=== PATIENT | female | born 1985 ===

== ENCOUNTER 2016-12-11 21:25 | Emergency (ER) | payer SELFPAY ==
[2016-12-11 21:25] VITALS: BMI 31.1
[2016-12-11 22:00] VITALS: BP 107/68; PULSE 80; RESP 18; TEMP 99.3; O2SAT 99
--- NOTE | 2016-12-11 22:51 | ED PDOC ---
HPI: General Adult Time Seen by Provider: 12/11/16 22:25 Chief Complaint (Nursing): Breast Problem Chief Complaint (Provider): Breast pain, headache, chest pain History Per: Patient History/Exam Limitations: no limitations Onset/Duration Of Symptoms: Persistent Additional History Per: Patient Additional Complaint(s): The patient is a 31yo female, past medical history of stroke, treated at [facility] 1 year ago, presents to the ED for evaluation of right breast pain, headache and chest pain. Patient reports she has chronic right breast pain, which she manages with ibuprofen - reports she is here with her daughter who is also a patient in the facility so she has not been able to take her ibuprofen. She also verbalized a chest pain and headache, and reports she feels anxious and stressed as a single mom of 5 children. She denies any nausea, vomiting, diaphoresis, cough, shortness of breath. She offers no additional medical complaints. Past Medical History Reviewed: Historical Data, Nursing Documentation, Vital Signs Vital Signs: Last Vital Signs Temp 99.3 F 12/11/16 21:58 Pulse 80 12/11/16 21:58 Resp 18 12/11/16 21:58 BP 107/68 12/11/16 21:58 Pulse Ox 99 12/11/16 22:54 - Medical History PMH: Asthma, TIA Denies: Chronic Kidney Disease Other PMH: right breast pain - Surgical History Surgical History: No Surg Hx - Family History Family History: States: No Known Family Hx, Unknown Family Hx - Living Arrangements Living Arrangements: With Family - Social History Current smoker - smoking cessation education provided: No Ex-Smoker (has not smoked in the last 12 months): No Alcohol: None Drugs: Denies - Immunization History Hx Tetanus Toxoid Vaccination: No Hx Influenza Vaccination: Yes Hx Pneumococcal Vaccination: No - Home Medications Home Medications: Ambulatory Orders Medication Instructions Recorded Aspirin [Ecotrin] 81 mg PO DAILY #0 tabec 12/31/15 Ferrous Sulfate [Feosol] 325 mg PO BID #60 tab 12/31/15 Ibuprofen [Motrin Tab] 600 mg PO Q6 PRN #12 tab 12/12/16 - Allergies Allergies/Adverse Reactions: Allergies Allergy/AdvReac Type Severity Reaction Status Date / Time No Known Allergies Allergy Verified 12/29/15 19:53 Review of Systems ROS Statement: Except As Marked, All Systems Reviewed And Found Negative Constitutional: Negative for: Sweats Cardiovascular: Positive for: Chest Pain, Other (right breast pain) Respiratory: Negative for: Cough, Shortness of Breath Gastrointestinal: Negative for: Nausea, Vomiting Neurological: Positive for: Headache Physical Exam - Reviewed Nursing Documentation Reviewed: Yes Vital Signs Reviewed: Yes - Physical Exam Appears: Positive for: Non-toxic, No Acute Distress Head Exam: Positive for: ATRAUMATIC, NORMAL INSPECTION, NORMOCEPHALIC Skin: Positive for: Warm, Dry Eye Exam: Positive for: Normal appearance Neck: Positive for: Supple Cardiovascular/Chest: Positive for: Regular Rate, Rhythm, Other (breast exam performed with 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 Negative for: Wheezing Neurologic/Psych: Positive for: Alert, Oriented. Negative for: Motor/Sensory Deficits - Laboratory Results Result Diagrams: 12/11/16 22:50 12/11/16 22:50 - ECG O2 Sat by Pulse Oximetry: 99 (RA) Pulse Ox Interpretation: Normal Medical Decision Making Medical Decision Making: Time: 2242 Impression: 31yo female with right breastalgia, headache, chest pain, in setting of familial stress Plan: -- Labs -- EKG -- Ibuprofen 600 mg PO Reassess 44 Labs reviewed: no clinically significant abnormalities. Patient notes symptoms have improved and is stable for discharge. Diagnosis: atypical chest pain, familial stress, nostalgia Scribe Attestation: Documented by Theresa Ordonez acting as a scribe for Gonzalez Merrill MD. Provider Attestation: All medical record entries made by the Scribe were at my direction and personally dictated by me. I have reviewed the chart and agree that the record accurately reflects my personal performance of the history, physical exam, medical decision making, and the department course for this patient. I have also personally directed, reviewed, and agree with the discharge instructions and disposition. Disposition - Clinical Impression Clinical Impression: Atypical chest pain, Stress at home, Mastalgia - Disposition Disposition: Routine/Home Disposition Time: 00:45 Condition: STABLE Prescriptions: Ibuprofen [Motrin Tab] 600 mg PO Q6 PRN #12 tab PRN Reason: breast pain/headache Instructions: Stress (ED), Noncardiac Chest Pain (ED) Forms: [facility] (Slovenian) Print Language: STATELESS
[2016-12-11 23:53] LABS: BASO # 0.1 K/uL (0.0-0.2); BASO % 0.9 % (0.0-2.0); EOS % 0.5 % (0.0-4.0); HEMATOCRIT 31.4 % (34.0-47.0); LYMPH # 2.8 K/uL (1.0-4.3); LYMPH % 33.2 % (20.0-40.0); MEAN CORPUSCULAR HEMOGLOBIN 20.8 pg (27.0-31.0); MEAN CORPUSCULAR HGB CONC 29.7 g/dL (33.0-37.0); MEAN PLATELET VOLUME 8.8 fl (7.2-11.7); MONO # 0.7 K/uL (0.0-0.8); MONO % 7.9 % (0.0-10.0); NEUT # 4.8 K/uL (1.8-7.0); NEUT % 57.5 % (50.0-75.0); NRBC % 0.1 % (0.0-0.0); RED CELL DISTRIBUTION WIDTH 18.4 % (11.5-14.5); WHITE BLOOD COUNT 8.4 K/uL (4.8-10.8)
[2016-12-11 23:55] LABS: BLOOD UREA NITROGEN 8 mg/dl (7-17); CALCIUM 8.6 mg/dL (8.4-10.2); CARBON DIOXIDE 21 mmol/L (22-30); CHLORIDE 107 mmol/L (98-107); GFR AFRICAN-AMERICAN > 60; GLUCOSE,RANDOM 130 mg/dL (65-105); POTASSIUM 4.2 MMOL/L (3.6-5.0); SODIUM 142 mmol/l (132-148)
--- NOTE | 2016-12-13 01:16 | CARD ---
APPROVED REPORT EKG Measurement Heart [id number] <Conclusion> Normal sinus rhythm Normal ECG
== END 2016-12-12 01:40 | disposition home or self-care (01) ==
LOC: H.ER 21:25
DX: R07.89 Other chest pain (principal); N64.4 Mastodynia; F43.9 Reaction to severe stress, unspecified